=== PATIENT | male | born 1990 | race African-American/Black ===

== ENCOUNTER 2024-10-22 10:41 | Outpatient (REF) | payer MEDICAID, SELFPAY ==
--- NOTE | ~2024-10-22 | XR_ITS ---
CLINICAL HISTORY: M54.9 - Dorsalgia, unspecified 3 views lumbar spine Comparison: None Findings: Normal vertebral body alignment. No acute fractures or dislocation. No significant degenerative change. IMPRESSION: No acute findings. This document has been electronically signed by: Justine Dee MD on 10/26/2024 14:45:28
--- NOTE | ~2024-10-22 | XR_ITS ---
CLINICAL HISTORY: M53.3 - Sacrococcygeal disorders, not elsewhere classified 3 views sacroiliac joints Comparison: None Findings No acute fractures. No significant degenerative change. No erosions. IMPRESSION: No acute findings This document has been electronically signed by: Justine Dee MD on 10/26/2024 14:44:41
== END 2024-10-22 10:42 | disposition home or self-care (01) ==
LOC: HO.HOSX 10:41
PROVIDERS: PCP Physician Assistant Medical; Visit Provider Physical Medicine & Rehabilitation
DX: M53.3 Sacrococcygeal disorders, not elsewhere classified (principal); M54.9 Dorsalgia, unspecified
CPT/HCPCS: 72100; 72200; 99202

== ENCOUNTER 2024-10-22 10:41 | Outpatient (AMB) | payer MEDICAID, SELFPAY ==
--- NOTE | 2024-10-22 10:45 | MHC.OFFVIS ---
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 Patient states pain began over a year ago when lifting something over his head. Pain starts left side of his lower back and radiates down to his left knee, posteriorly. Reports some tingling on the left thigh, denies numbness. Patient has not tried PT however he is physically active doping sports, stretches, and walking. Denies any injuries or surgeries to the back. Allergies amoxicillin Adverse Reaction (Unknown, Verified 10/21/24 14:04) Nausea and Vomiting Medication List - Last Reconciled 10/22/24 by Dorys Sawyer MD No Known Home Meds HPI Comments Details: Referred to us by [facility]. Patient states pain began over a year ago when lifting something over his head. Pain starts left side of his lower back and radiates down to his left knee, posteriorly. Reports some tingling on the left thigh, denies numbness. Pain started a year or so. Left lower back, radiates to calf. Tingling but no numbness. Patient has not tried PT however he is physically active doping sports, stretches, and walking. Almost daily. Ibuprofen as needed for severe pain. No imaging yet. [facility] Medical History (Updated 10/22/24 @ 11:04 by Dorsy Sawyer MD) Fracture of wrist Fracture, jaw closed, angle Collar bone fracture Low weight Hepatitis B antibody positive Blunt trauma of face Family History (Updated 10/21/24 @ 14:08 by LEIGH ANN Schmid) Father Thyroid disease Social History (Updated 10/22/24 @ 10:48 by LEIGH ANN Schmid) Patient Tobacco Use Status: Never used Tobacco Current occupational status: employed Current occupation: rt handed, residential counselor Review of Systems Const All systems reviewed & are unremarkable except as noted in HPI and below Physical Exam Vital Signs: BMI result Body Mass Index 17.6 Constitutional: Patient appears to be in no acute distress, well nourished and well developed. Patient was appropriately conversant and oriented. Good historian. MSK: No specific abnormalities found on inspection of the spine and all extremities. No pain with palpation over the lumbar spinous processes or facets. No tenderness over paraspinals. Mild tenderness over quadratus lumborum. Tender over left SI joint. GT nontender. Lumbar ROM was full. Bilateral hip, knee and ankle ROM WNL. No ligamentous laxity or crepitance. No increased effusion. Straight-leg raising test negative. FABERE test positive left. Strength is 5/5 in all muscle groups tested. No increased tone noted. Neurological: Neurologic examination of the upper and lower extremities was nonfocal with intact sensation, muscle stretch reflexes and without focal motor deficits . Deleon?s negative bilaterally. Babinski was down going bilaterally. Clonus was negative. Gait is non-antalgic without loss of balance. Assessment & Plan Assessment & Plan (1) Sacroiliac joint dysfunction of left side: Code(s): M53.3 - Sacrococcygeal disorders, not elsewhere classified Category: Medical Plan Lower back pain focal to left SI joint. No signs of lumbar radiculopathy or myelopathy on exam. Referring to physical therapy to realign SI joint, left, and pelvic stabilization. Sending for lumbar and SI joint x-rays for completion. Assessment and plan discussed with patient, and patient was agreeable. All questions were answered thoroughly. Follow up 2 months, after PT. Dorys Sawyer MD, JOSSELIN Board Certified, [place] Board of Physical Medicine and Rehabilitation (ABPMR) Board Certified, [place] Board of Electrodiagnostic Medicine (ABEM) Orders: Orders XR sacroiliac joint 1-2V Today M53.3 - Sacrococcygeal disorders, not elsewhere classified XR lumbar spine 2-3V Today M54.9 - Dorsalgia, unspecified PT Evaluation and Treatment Today M53.3 - Sacrococcygeal disorders, not elsewhere classified Coding Level of Care Code New Pt Level 4 (24461) Diagnoses Sacroiliac joint dysfunction of left side M53.3
[2024-10-22 10:48] VITALS: BMI 17.6
== END 2024-10-22 12:34 | disposition home or self-care (01) ==
PROVIDERS: PCP Physician Assistant Medical; Visit Provider Physical Medicine & Rehabilitation
DX: M53.3 Sacrococcygeal disorders, not elsewhere classified (principal)
CPT/HCPCS: 99203

== ENCOUNTER → 2024-10-22 11:03 | Outpatient (BNV) | payer MEDICAID, SELFPAY | PROVIDERS: PCP Physician Assistant Medical; Visit Provider Radiology Diagnostic Radiology | DX: M54.9 Dorsalgia, unspecified (principal); M53.3 Sacrococcygeal disorders, not elsewhere classified | CPT/HCPCS: 72100; 72200 ==

== ENCOUNTER 2024-12-24 09:49 | Outpatient (AMB) | payer MEDICAID, SELFPAY ==
[2024-12-24 09:57] VITALS: BMI 17.6
--- NOTE | 2024-12-24 09:57 | A.OFFVIS_ITS ---
Vital Signs 12/24/24 09:57 Height 6 ft Weight 130 lb BMI 17.6 Intake Visit Reasons: OV- chronic midline low back pain Intake Note: Alexeadamir 34 yr old male presents today for follow up visit for her Sacroiliac joint dysfunction of left side s/p P.T. States he has attended 2-3 session so far and notice it has been helping. Allergies amoxicillin Adverse Reaction (Unknown, Verified 12/24/24 10:04) Nausea and Vomiting HPI Comments Details: Referred to us by [facility]. Patient states pain began over a year ago when lifting something over his head. Pain starts left side of his lower back and radiates down to his left knee, posteriorly. Reports some tingling on the left thigh, denies numbness. Pain started a year or so. Left lower back, radiates to calf. Tingling but no numbness. He is physically active doping sports, stretches, and walking. Almost daily. Ibuprofen as needed for severe pain. He says pain is same left side, still radiating to left leg/calf but not to foot. No numbness. No weakness. Focal pain on left SI, especially when he gets up from bed but gets better after moving a bit more. He has done at least 3 sessions of PT here in [place], from November to present. Scheduled for total 5 so far. PT notes reviewed. [facility] Medical History (Updated 10/22/24 @ 11:04 by Dorys Sawyer MD) Fracture of wrist Fracture, jaw closed, angle Collar bone fracture Low weight Hepatitis B antibody positive Blunt trauma of face Family History (Updated 10/21/24 @ 14:08 by LEIGH ANN Schmid) Father Thyroid disease Social History (Updated 10/22/24 @ 10:48 by LEIGH ANN Schmid) Patient Tobacco Use Status: Never used Tobacco Current occupational status: employed Current occupation: rt handed, residential counselor Physical Exam Vital Signs: BMI result Body Mass Index 17.6 Constitutional: Patient appears to be in no acute distress, well nourished and well developed. Patient was appropriately conversant and oriented. Good historian. MSK: No specific abnormalities found on inspection of the spine and all extremities. No pain with palpation over the lumbar spinous processes or facets. No tenderness over paraspinals. Tender over left SI joint. GT nontender. Lumbar ROM was limited on extension due to pain. Bilateral hip, knee and ankle ROM WNL. No ligamentous laxity or crepitance. No increased effusion. Straight-leg raising test negative. FABERE test positive left buttocks/back pain/SI pain. Strength is 5/5 in all muscle groups tested. No increased tone noted. Neurological: Neurologic examination of the upper and lower extremities was nonfocal with intact sensation, muscle stretch reflexes and without focal motor deficits . Deleon?s negative bilaterally. Babinski was down going bilaterally. Clonus was negative. Gait is non-antalgic without loss of balance. Results Reviewed Results Reviewed: Ordering Physician: Dorys Polanco Date of Service: 10/22/24 Procedure(s): XR lumbar spine 2-3V Accession Number(s): [id number] cc: Amber Redman PA-C; Dorys Munoz CLINICAL HISTORY: M54.9 - Dorsalgia, unspecified 3 views lumbar spine Comparison: None Findings: Normal vertebral body alignment. No acute fractures or dislocation. No significant degenerative change. IMPRESSION: No acute findings. This document has been electronically signed by: Justine Dee MD on 10/26/2024 14:45:28 Ordering Physician: Dorys Polanco Date of Service: 10/22/24 Procedure(s): XR sacroiliac joint 1-2V Accession Number(s): [id number] cc: Amber Redman PA-C; Dorys Polanco~ CLINICAL HISTORY: M53.3 - Sacrococcygeal disorders, not elsewhere classified 3 views sacroiliac joints Comparison: None Findings No acute fractures. No significant degenerative change. No erosions. IMPRESSION: No acute findings Assessment & Plan Assessment & Plan (1) Sacroiliac joint dysfunction of left side: Code(s): M53.3 - Sacrococcygeal disorders, not elsewhere classified Category: Medical Plan Exam and symptoms still suggestive of left SI joint dysfunction, without signs of lumbar radiculopathy. He has tried PT so far without relief yet. He is agreeable and cooperative with HEP. We do think it would help him to get a left SI joint injection. Referring him to Pain Management, to be done under fluoro or ultrasound guidance. May follow up with me after injection. Assessment and plan discussed with patient, and patient was agreeable. All questions were answered thoroughly. Dorys Sawyer MD, JOSSELIN Board Certified, [place] Board of Physical Medicine and Rehabilitation (ABPMR) Board Certified, [place] Board of Electrodiagnostic Medicine (ABEM) Orders: Referrals Pain Management Referral M53.3 - Sacrococcygeal disorders, not elsewhere classified Coding Level of Care Code Est Pt Level 4 (48449) Diagnoses Sacroiliac joint dysfunction of left side M53.3
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
--- OUTSIDE RECORDS SUMMARY | 2024-12-24 10:44 | XMS_ITS | Clinical Summary ---
Author Organization [facility] Address [address] [place] [address] Care Team Providers Care Appeals Nurse Name Role Phone Unavailable Primary Care Provider Unavailabl e Allergies No known active allergies Social History Tobacco Use Types Packs/Day Years Used Date Smoking Tobacco: Never Assessed Sex and Gender Information Value Date Recorded Sex Assigned at Male 10/02/2023 8:31 AM EST Legal Sex Male 8:21 AM EST Gender Identity Male 10/02/2023 8:31 AM EST Sexual Orientation Choose not to disclose 2022 8:31 AM EST Plan of Treatment Health Maintenance Due Date Last Done Comments Dental Oral Exam 1988 Dental Prophylaxis 1988 Dental X-Ray: Full Mouth 1988 Depression Screening 1988 HIV Screening 1988 Lipid Panel 1988 SDOH Screening 1988 Alcohol/Substance Use Screening 2000 Tobacco Screening 2000 Family Planning (PISQ) 2003 Hepatitis C Screening 2006 Hepatitis B Vaccines (2 of 3 - 19+ 3-dose series) 08/05/2014 07/08/2014 COVID-19 Vaccine ( - 2023-2 5 season) 2024 Influenza Vaccine (#1) 2024 DTaP/Tdap/Td Vaccines (2 - T d or Tdap) 07/08/2024 07/08/2014 Dental X-Ray: Bitewings 10/03/2024 10/02/2023 Zoster Vaccines (1 of 2) 2038 RSV Patients and Pa tients Aged 60 years or older (1 - 1-dose 75+ series) 2063 HIB Vaccines Aged Out No longer eligi ble based on patient's age to complete this topic HPV Vaccines Aged Out No longer eligi ble based on patient's age to complete this topic Hepatitis A Vaccines Aged Out No long er eligible based on patient's age to complete this topic IPV Vaccines Aged Out No longer eligi ble based on patient's age to complete this topic Meningococcal Vaccine Aged Out No constantino domenico eligible based on patient's age to complete this topic Pneumococcal Vaccine: Pediat rics (0 to 5 Years) and At-Risk Patients (6 to 49) Years) Aged Out No longer elig ible based on patient's age to complete this topic RSV under 20 months Aged Out No longe r eligible based on patient's age to complete this topic Rotavirus Vaccines Aged Out No longer eligible based on patient's age to complete this topic Procedures Procedure Name Priority Date/Time Associated Diagnosis Comments BITEWING - SINGLE RADIOGRAPHIC IMAGE Routine 10/02/2023 11:30 AM EST from Last 3 Months or Most Recently Relevant to Health Maintenance Insurance [employer] [employer] [employer] STAND ADULT
--- OUTSIDE RECORDS SUMMARY | 2024-12-24 10:44 | XMS_ITS | Clinical Summary ---
Author Organization [facility] ity Address [address] [place] [address] Care Team Providers Care Convenience Store Manager Name Role Phone Unavailable Primary Care Provider Unavailabl e Social History Tobacco Use Types Packs/Day Years Used Date Smoking Tobacco: Never Assessed Sex and Gender Information Value Date Recorded Sex Assigned at Not on file Legal Sex Male 10:16 AM EST Gender Identity Not on file Sexual Orientation Not on file Plan of Treatment Health Maintenance Due Date Last Done Comments DTaP,Tdap,and Td Vaccines (1 - Tdap) 2007 Hepatitis B Vaccines (1 of 3 - 19+ 3-dose series) 2007 COVID-19 Vaccine ( - 2023-2 5 season) 2024 Influenza Vaccine (#1) 2024 HIB Vaccines Aged Out No longer eligi [...] on patient's age to complete this topic MMR Vaccines Aged Out No longer eligi ble based on patient's age to complete this topic Meningococcal ACWY Vaccine Aged Out N o longer eligible based on patient's age to complete this topic Meningococcal B Vacine Aged Out No lo nger eligible based on patient's age to complete this topic Pneumococcal Vaccine: Pediat rics (0 to 5 Years) and At-Risk Patients (6 to 64 Years) Aged Out No longer eligible b ased on patient's age to complete this topic RSV Immunization Patients Un jessica 20 months Aged Out No longer eligible b ased on patient's age to complete this topic Varicella Vaccines Aged Out No longer eligible based on patient's age to complete this topic
--- OUTSIDE RECORDS SUMMARY | 2024-12-24 10:44 | XMS_ITS | Encounter Summary ---
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 Name Role Phone Unavailable Primary Care Provider Unavailabl e Reason for Visit * Reason Onset Date Comments rs emergency appt 10/02/2023 Encounter Details Date Type Department Care Team (Late st Contact Info) Description 10/02/2023 Telephone [facility] [address] [place] [address] Shu Dennison BDS rs emergency appt Social History Tobacco Use Types Packs/Day Years Used Date Smoking Tobacco: Never Assessed Sex and Gender Information Value Date Recorded Sex Assigned at Male 10/02/2023 8:31 AM EST Legal Sex Male 8:21 AM EST Gender Identity Male 10/02/2023 8:31 AM EST Sexual Orientation Choose not to disclose 2022 8:31 AM EST documented as of this encounter Miscellaneous Notes * Telephone Encounter - Roxana Mares - 10/02/2023 8:51 AM EST Patient originally scheduled in [facility] for emergency visit on 10/02. Provider called out. Patient rs by Judd in [facility] to [facility] for th same time 11:30. I reached out to patient to confirm that patient is aware of the appt change in location. No answer. Left detailed message with phone number for patient to reach out with any questions. Informed patient that chat would be documented concerning appt change and message left. documented in this encounter Plan of Treatment Not on file documented as of this encounter Visit Diagnoses Not on filedocumented in this encounter
== END 2024-12-24 10:13 | disposition home or self-care (01) ==
PROVIDERS: PCP Physician Assistant Medical; Visit Provider Physical Medicine & Rehabilitation
DX: M53.3 Sacrococcygeal disorders, not elsewhere classified (principal)
CPT/HCPCS: 99214

== ENCOUNTER → 2024-12-24 09:49 | Outpatient (BNVA) | payer MEDICAID, SELFPAY | PROVIDERS: PCP Physician Assistant Medical; Visit Provider Physical Medicine & Rehabilitation | DX: M53.3 Sacrococcygeal disorders, not elsewhere classified (principal) | CPT/HCPCS: 99212 ==

== ENCOUNTER 2024-12-24 11:00 | Outpatient (RCR) | payer MEDICAID, SELFPAY ==
--- NOTE | 2024-12-15 15:14 | MHC.PT.EP ---
[facility] [place] Office [place] Office [place] Office [address] Nazario Christian [address] [phone] F: [phone] F: [phone] F: [phone] F: [phone] Physical Therapy Plan of Care Date of Evaluation: 12/15/24 Date of Surgery: Diagnosis: Sacrococcygeal disorders (MD Dx) LBP with L LE radiculopathy (PT Dx) RS Assessment: Kevin is a pleasant, motivated 34 y.o. male who is referred to PT by Dr. Dorys Sawyer of [facility], , with Dx of Sacrococcygeal disorders. PT diagnosis is LBP with L LE radiculopathy. Patient impairments include L low back pain and L LE radiculopathy, limited lumbar AROM, weakness in L hip, hip/LB muscle imbalances, antalgic gait. Patient current functional limitations are prolonged sitting or standing, unsupported sitting, difficulty sit to stand and initiate movement, challenging with reciprocal stair use, bending, getting in/out of car. Patient will benefit from skilled PT to address aforementioned impairments and functional limitations to meet established goals. Frequency and Duration: The patient will be seen 2x/week for 4 weeks Short Term Goals: 2 weeks Patient demonstrates consistency and independence with HEP to self manage symptoms and show understanding of centralization vs peripheralization of LE sxs. Patient presents with increased lumbar flexion AROM 90 degrees to restore mobility to improve getting in/out of car. Alf Goals: 4 weeks Patient presents with increased L hip flexion 5/5 without pain to perform reciprocal stairs without sxs or difficulty. Patient presents with full AROM sidebending 30 degrees to restore mobility for work tasks. Treatment Plan: Modalities to reduce pain, spasms and effusion. Manual therapy to restore motion and function. Therapeutic exercise to improve strength and flexibility. Neuromuscular re-education for posture and balance. Therapeutic activities to return to functional activities of daily living. Electronically signed by: Milagros Alexis, PT, DPT Please sign and return to therapist. Thank you for your referral.
--- NOTE | 2025-02-15 11:54 | MHC.PT.OE ---
[facility] [place] [facility] [place] [facility] [place] [facility] [address] Nazario Christian [address] [phone] F: [phone] F: [phone] F: [phone] F: [phone] Physical Therapy Evaluation Evaluation Date: 12/15/24 Current Condition Diagnosis: Sacrococcygeal disorders (MD Dx) LBP with L LE radiculopathy (PT Dx) RS Onset Date: Date of Surgery: Chief Complaint/ Current Level of Function: Patient states pain began over a year ago when lifting a heavy arm of a machine going out of a parking garage. He reports he was squatting and it was heavier than expected and a sudden stop caused a pinching pain in L low back. Pain and numbness/tingling starts left side of his lower back and radiates down to his left knee, posteriorly at hamstrings, occasionally calf. He was seen at ortho and had x-ray imaging of spine which were normal. Ortho referred to PT, no other interventions. Prior Level of Function/Occupation: Lives on 3rd floor Work; residential (sits a lot) Diagnostic Imaging: X-[facility] [address] [place] [address] XRay Report Signed Patient: Kevin Herrera MMR#: [id number] : 1990Acct:[id number] Age/Sex: 33 / MADM Date: 10/22/24 Loc: HO.SARAHX Attending Dr: Dorys Sawyer MD Ordering Physician: Dorys Polanco Date of Service: 10/22/24 Procedure(s): XR lumbar spine 2-3V Accession Number(s): [id number] cc: Amber Redman PA-C; Dorys Polanco~ CLINICAL HISTORY: M54.9 - Dorsalgia, unspecified 3 views lumbar spine Comparison: None Findings: Normal vertebral body alignment. No acute fractures or dislocation. No significant degenerative change. IMPRESSION: No acute findings. This document has been electronically signed by: Justine Dee MD on 10/26/2024 14:45:28 Dictated By:Justine Dee MD Signed By:<Electronically signed by Justine Dee MD in OV>10/26/24 1446 DD/ 44 TD/TT: 10/26/24 1445Transcriptionist: Patient Goals and Expectations: Past Medical History: Medical History (Updated 10/22/24 @ 11:04 by Dorys Sawyer MD) Fracture of wrist Fracture, jaw closed, angle Collar bone fracture Low weight Hepatitis B antibody positive Blunt trauma of face Surgery wired jaw 2004 Medications: Precautions/ Contraindications: Outcome Measure: LEFI: 34/80 Pain Pain Score: 6 Pain Scale Used: Numeric (0 - 10) Pain Location/ Description: L lower back to LE Aggravating Factors: prolonged sitting or standing, unsupported sitting, difficulty sit to stand and initiate movement, challenging with reciprocal stair use, bending, getting in/out of car Alleviating Factors: lying prone Objective Findings Posture: Posterior Pelvic Tilt sits slouched in chair; PPT Skin & Soft Tissue/ Palpation: Tender at L L4/L5 and L L5/S1 and at PSIS and QL No leg length discrepancy Gait/ Functional Mobility: Reduced SLS time on L leg, reduced L hip extension , reports pain with L WBing AROM (PROM) Strength Cervical Spine Flexion: Extension: Lateral Flexion: Rotation: Cervical Comments: Flexion: Extension: Lateral Flexion: Rotation: Other: Shoulder Flexion: Extension: Abduction: ER: IR: Apley ER: Apley IR: Comments: Flexion: Extension: Abduction: Adduction: ER: IR: Other: Elbow Flexion: Extension: Pronation: Supination: Comments: Flexion: Extension: Pronation: Supination: Wrist Flexion: Wrist Extension: Other: Lumbar Spine Flexion: 70 pain/tension Extension: 28 improvement mild pain Lateral Flexion: R 25, L 20 pain Rotation: Comments: Transverse abdominus: Extensors: Other: Hip Flexion: Extension: Abduction: Adduction: ER: IR: Comment: Full AROM of bilateral hips, pain at end range L hip flexion and ER/IR at low back Flexion: R 5/5, L 4/5 pain Extension: R 4+/5, L 4/5 pain Abduction: glute med R 4+/5, L 4-/5 pain Adduction: ER: IR: Other: Knee Flexion: Extension: Comments: Patella Mobility: Flexion: bilat 5/5 pain on L LB Extension: bilat 5/5 pain on L LB Other: Ankle Dorsiflexion: Plantarflexion: Inversion: Eversion: Comments: Dorsiflexion: bilat 5/5 Plantarflexion: bilat 5/5 Inversion: Eversion: Comments: Maricruz Assessment: reports improvement in radicular sxs L LE with REIL Sacroiliac Assessment: Muscle Length: Special Tests: POSITIVE SLR on L, SLR on R causes L sided LBP Vitals: BP: HR: O2SAT: RR: Other: Balance: Neurological Screen: Biceps DTR: Brachioradialis DTR: Triceps DTR: Patella DTR: Achilles DTR: Other: Dermatomes: Sensation: Myotomes: Patient Education Primary Language Chinese Logistics Supply Officer Required No Who was Educated Patient Readiness for Learning Accepting Current Knowledge Understands information with skills for self-management Education Needs ADL's Disease Information Equipment Use Exercise Pain Safety Teaching Method Verbal Demonstration Handouts How did Patient Demonstrate Learning Patient demonstrates Patient verbalizes Barriers to Learning None Assessment Assessment: Kevin is a pleasant, motivated 34 y.o. male who is referred to PT by Dr. Dorys Sawyer of [facility] [place] [facility], with Dx of Sacrococcygeal disorders. PT diagnosis is LBP with L LE radiculopathy. Patient impairments include L low back pain and L LE radiculopathy, limited lumbar AROM, weakness in L hip, hip/LB muscle imbalances, antalgic gait. Patient current functional limitations are prolonged sitting or standing, unsupported sitting, difficulty sit to stand and initiate movement, challenging with reciprocal stair use, bending, getting in/out of car. Patient will benefit from skilled PT to address aforementioned impairments and functional limitations to meet established goals. Rehabilitation Potential: Excellent Plan of Care Frequency and Duration 2x/week for 4 weeks Short Term Goals 2 weeks Patient demonstrates consistency and independence with HEP to self manage symptoms and show understanding of centralization vs peripheralization of LE sxs. Patient presents with increased lumbar flexion AROM 90 degrees to restore mobility to improve getting in/out of car. [facility] Goals 4 weeks Patient presents with increased L hip flexion 5/5 without pain to perform reciprocal stairs without sxs or difficulty. Patient presents with full AROM sidebending 30 degrees to restore mobility for work tasks. Treatment Plan Therapeutic Exercise Dynamic Therapeutic Activities Neuromuscular Re-ed Manual Therapies Joint Mobilization Taping Gait Home Exercise Program Patient Education Electrical Stimulation Iontophoresis Ultrasound Mechanical Traction Hot or Cold Pack Reviewed/ Agreed with Student Documentation: Therapist: Electronically signed by: Milagros Alexis PT, DPT Please sign and return to therapist. Thank you for your referral.
== END 2025-02-15 11:55 | disposition home or self-care (01) ==
LOC: HO.PT 11:00
PROVIDERS: PCP Physician Assistant Medical; Visit Provider Physical Medicine & Rehabilitation
DX: M53.3 Sacrococcygeal disorders, not elsewhere classified (principal)
CPT/HCPCS: 97012; 97110; 97161; 97535